=== PATIENT | female | born 1965 | race Caucasian/White ===

== ENCOUNTER 2021-02-20 13:32 | Observation (INO) | payer OTHER, SELFPAY ==
--- NOTE | ~2021-02-20 | US_ITS ---
EXAMINATION: US carotid duplex BI DATE: 02/21/2021 13:11 INDICATION: Left facial weakness. TECHNIQUE: Grayscale, color Doppler, and pulsed Doppler images of the cervical carotid arteries were obtained. The degree of vessel stenosis is placed in one of the following categories: normal, <50%, 5 0-69%, >=70% but less than near-occlusion, near-occlusion, or total occlusion. Note that percent sten osis relative to normal distal artery lumen diameter is indirectly measured from velocity measurement s as described by James, et al. Radiology 2003; 229:340-346. COMPARISON: None. FINDINGS: RIGHT: The right common carotid artery (CCA) peak systolic velocity (PSV) is 94 cm/s. The right internal car otid artery (ICA) PSV is 102 cm/s. The right ICA end-diastolic velocity (EDV) is 47 cm/s. The right I CA/CCA PSV ratio is 1.1. Grayscale and color Doppler images yield an estimate of <50% diameter reduct ion from plaque in the ICA. There is antegrade flow in the right vertebral artery. LEFT: The left CCA PSV is 94 cm/s. The left ICA PSV is 98 cm/s. The left ICA EDV is 37 cm/s. The left ICA/C CA PSV ratio is 1.1. Grayscale and color Doppler images yield an estimate of <50% diameter reduction from plaque in the ICA. There is antegrade flow in the left vertebral artery. IMPRESSION: 1. <50% stenosis in the right internal carotid artery. 2. <50% stenosis in the left internal carotid artery. Reviewed, dictated and finalized at location A. FIELD CASE MANAGER
--- NOTE | ~2021-02-20 | XR_ITS ---
EXAMINATION: XR chest 1V portable EXAM DATE: 02/20/2021 14:07 INDICATION: Memory loss. TECHNIQUE: Portable AP frontal chest x-ray was obtained. Comparison is made to prior examination from 03/25/2018. FINDINGS: The lungs are clear. There are no pleural effusions. Cardiac silhouette is prominent but magnified on this AP technique. There is no pneumothorax suspected. The bones and soft tissues are unremarkable. IMPRESSION: No acute cardiopulmonary findings. Reviewed, dictated and finalized at location B. ER ORIENTATION TEACHER
--- NOTE | ~2021-02-20 | CT_ITS ---
EXAMINATION: CT brain wo con DATE: 02/20/2021 13:45 INDICATION: Left facial weakness. Confusion. Memory loss. TECHNIQUE: Computed tomography (CT) of the head was performed without intravenous contrast. The mA wa s adjusted according to patient size. Iterative reconstruction technique was employed. The dose-lengt h product was 605.33 mGy-cm. COMPARISON: None FINDINGS: There is no intracranial hemorrhage, acute infarction, or abnormal intracranial mass lesion . The ventricles are normal in size. The mastoid air cells are normal. The paranasal sinuses are melchor r. The orbits are normal. IMPRESSION: 1. Normal brain. I called this result to Dr. Brunson. Reviewed, dictated and finalized at location A. NT SERVICE COORDINATOR
--- NOTE | ~2021-02-20 | MR_ITS ---
EXAMINATION: MR brain/brain stem wo/w con EXAM DATE: 02/21/2021 13:01 INDICATION: Global amnesia. TECHNIQUE: Magnetic resonance imaging (MRI) of the brain/brain stem obtained without contrast. Sagit oliva T1, axial diffusion, gradient echo (T2*), T1, T2, FLAIR sequences obtained. Patient was then inj ected with 19 cc intravenous Multihance contrast. Axial and coronal postcontrast T1 weighted sequence s obtained. There is no prior study for comparison. FINDINGS: Bilateral choroidal fissure cysts. There are no areas of restricted diffusion to suggest ac nooksack infarction. There is no acute hemorrhage seen on the T2*, a hemosiderin sensitive sequence. No intraparenchymal brain mass. The ventricles are normal in size. There are no extra-axial collections . Flow voids are seen in the cerebral arteries on the T2-weighted sequences consistent with their ex pected patency. The orbits are unremarkable. Soft tissue is unremarkable. There are no areas of a bnormal enhancement on the postcontrast images. IMPRESSION: 1. Unremarkable brain MRI examination. Reviewed, dictated and finalized at location B. CEMENTER
[2021-02-20 13:38] LABS: Glucose Point of Care 98 mg/dl (65-105)
--- NOTE | 2021-02-20 13:39 | ECG_ITS ---
Measurements Intervals [place] Rate: 91 P: 33 MA: 189 QRS: -20 QRSD: 98 T: 18 QT: 337 QTc: 416 Interpretive Statements SINUS RHYTHM LOW QRS VOLTAGE IN PRECORDIAL LEADS BORDERLINE R WAVE PROGRESSION, ANTERIOR LEADS CONSIDER INFERIOR INFARCT, AGE INDETERMINATE BASELINE ARTIFACT- I, II, III, AVR, AVL, AVF, V1, V3-V6 ABNORMAL ECG Electronically Signed On 02-20-2021 14:49:07 MECHANICAL PLANNER by Deshawn Timmons D.O.
[2021-02-20 13:46] VITALS: BP 129/76; PULSE 88; PULSE 96; RESP 24; RESP 25; O2SAT 100
--- NOTE | 2021-02-20 14:03 | PC.NURSE ---
Pts in room. Pt asked how long you been without a leg? Pts states 2 years ago. Pt also states she has no idea what her house looks like.
[2021-02-20 14:44] LABS: Basophils Absolute Auto 0.1 K/mm3 (0.0-0.1); Basophils Percent Auto 0.6 % (0.2-1.2); Eosinophils Absolute Auto 0.1 K/mm3 (0-0.3); Eosinophils Percent Auto 1.6 % (0-4.4); Hematocrit 42.8 % (37.0-47.0); Hemoglobin 14.3 g/dL (12.0-15.0); Immature Granulocyte Absolute 0.02 K/mm3 (0.00-0.031); Immature Granulocyte Percent A 0.2 % (0-0.5); Lymphocytes Absolute Auto 2.39 K/mm3 (0.9-3.2); Lymphocytes Percent Auto 27.1 % (18.3-44.2); Mean Corpuscular HGB Conc 33.4 g/dl (32-36); Mean Corpuscular Hemoglobin 28.7 pg (26-34); Mean Corpuscular Volume 85.9 fl (80-100); Mean Platelet Volume 9.5 fl (7.4-10.4); Monocytes Absolute Auto 0.4 K/mm3 (0.1-0.6); Monocytes Percent Auto 4.9 % (2.6-8.5); Neutrophils Absolute Auto 5.8 K/mm3 (1.3-6.7); Neutrophils Percent Auto 65.6 % (45.5-73.1); Platelet Count Result 249 k/mm3 (150-375); Red Blood Count 4.98 M/mm3 (4.2-5.4); Red Cell Distribution Width 12.6 % (11.5-14.5); White Blood Count 8.8 K/mm3 (4.5-10.0)
[2021-02-20 14:55] LABS: Anion Gap 8 mmol/L (8-16); Blood Urea Nitrogen 17 mg/dL (7-17); Calcium 9.9 mg/dL (8.4-10.2); Carbon Dioxide 28 mmol/L (22-30); Chloride 103 mmol/L (98-107); Estimated CRCL calculation 82 ml/min; Estimated Glomerular Filt Rate > 60; Glucose 99 mg/dL (65-110); Potassium 3.8 mmol/L (3.4-5.0); Sodium 139 mmol/L (137-145)
[2021-02-20 14:56] LABS: Partial Thromboplastin Time 25.2 SECONDS (22.3-36.8); Prothrombin Time 12.7 Seconds (11.1-14.7)
[2021-02-20 15:07] LABS: Troponin I < 0.012 ng/mL (0.000-0.034)
--- NOTE | 2021-02-20 15:20 | ED.NEUROSD ---
HPI - Neuro Symptoms/Deficit General Chief Complaint: Neuro Symptoms/Deficit Stated Complaint: AMS Time Seen by Provider: 02/20/21 14:29 Source: patient, family and RN notes reviewed Mode of arrival: ambulatory Limitations: altered mental status History of Present Illness HPI Narrative: Patient presents to the ED with confusion started at work. Patient does not remember where she was and how she can get back to go home and her birthday and other recent events. Started 3 to 5 hours prior to arrival to the emergency room. Patient denies any weakness, numbness or tingling or headache. Patient also denies any fever, chills, nausea, vomiting, chest pain or shortness of breath or having similar symptom. reported that patient have a lot of stress lately Related Data Allergies Allergy/AdvReac Type Severity Reaction Status Date / Time No Known Allergies Allergy Unknown Verified 07/29/20 13:03 Review of Systems Review of Systems: ROS unobtainable: Yes unobtainable due to medical condition PMFSH Past Medical History Medical History (Updated 02/20/21 @ 15:24 by Zuleyma Brunson MD) BMI 32.0-32.9,adult Ganglion, left wrist Melanoma in situ Surgical History Surgical History (Updated 02/20/21 @ 15:22 by Janet Kothari PA-C) History of melanoma excision Excision melanoma in situ of left leg Family History Family History Father Hypertension Family history of diabetes mellitus in first degree relative Sibling Hypertension Grandparent Family history of coronary artery disease Diabetes mellitus Social History Social History (Updated 02/20/21 @ 15:23 by Janet Kothari PA-C) Social History: Surrogate decision-maker: CODE STATUS: Full code. Smoking status: Never smoker Alcohol intake: never Substance use: never Substance use type: does not use Additional living arrangements comments: Patient lives in [place]. 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 Exam Narrative: General appearance: Well-developed, well-nourished Skin: Normal color Head: Normocephalic, nontraumatic Eyes: Clear conjunctiva ENT: Oropharynx normal, ears normal, nose normal Neck: Supple, nontender Chest and respiratory: Airway patent, no respiratory distress, no accessory muscle use Heart: Regular rate/rhythm Abdomen: Soft, nontender, no organomegaly, quiet bowel sounds Vascular: Normal peripheral pulses, normal capillary refill. Musculoskeletal: Normal range of motion, nontender back Neurologic: Alert and oriented to her name only Course Course Emergency Course: Stable Vital Signs Vital signs: Vital Signs Pulse Rate 88 02/20/21 13:46 Respiratory Rate 25 H 02/20/21 13:46 Blood Pressure 129/76 02/20/21 13:46 Pulse Oximetry 100 02/20/21 13:46 Pulse Rate 96 02/20/21 13:46 Respiratory Rate 24 H 02/20/21 13:46 Blood Pressure 129/76 02/20/21 13:46 Pulse Oximetry 100 02/20/21 13:46 MDM - Neuro Symptoms/Deficit MDM Narrative Medical decision making narrative: Patient presents with global amnesia. Unknown underlying cause. Labs, CT head ordered. Differential diagnosis as below. Differential Diagnosis Differential diagnosis: Likely cerebrovascular accident, transient cerebral ischemia and other (Transient global amnesia) Lab Data Result diagrams: 02/20/21 14:28 02/20/21 14:28 Labs: Lab Results 02/20/21 02/20/21 02/20/21 Range/Units 13:36 14:28 14:28 WBC 8.8 (4.5-10.0) K/mm3 RBC 4.98 (4.2-5.4) M/mm3 Hgb 14.3 (12.0-15.0) g/dL Hct 42.8 (37.0-47.0) %
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
[2021-02-20 17:36] VITALS: BMI 32.7
--- NOTE | 2021-02-20 18:08 | ADMGEN ---
This patient, Mercedes Watson, was admitted to [address] [facility] Surg Room 312-01. Patient/family oriented to hospital policies and general routines including ID bracelet, bed and alarms, visiting hours, pain management, procedures, bathroom and other care routines, personal items, smoking policy, room service/diet, and visiting hours. Information on how to activate the Rapid Response Team has been discussed. Patient/Family are encouraged to report perceived risks to care and to ask questions if they do not understand what they are told or what they should do.
[2021-02-20 18:25] VITALS: BP 143/74; PULSE 95; RESP 20; TEMP 36.3; O2SAT 100
[2021-02-20 20:00] VITALS: PULSE 97
[2021-02-20 22:00] VITALS: BP 121/71; PULSE 95; RESP 18; TEMP 36.6; O2SAT 96
[2021-02-20] MEDS: ACETAMINOPHEN 325 MG TABLET 650 MG PO (23:06)
[2021-02-20 23:45] VITALS: O2SAT 98
[2021-02-21] VITALS (8 sets, daily range): BP systolic 112–151; BP diastolic 63–93; PULSE 68–86; RESP 14–20; TEMP 36.1–36.4; O2SAT 95–100
[2021-02-21] MEDS: ACETAMINOPHEN 325 MG TABLET 650 MG PO ×2 (06:56→14:25)
--- NOTE | 2021-02-21 09:25 | WPDNEUROLOGY ---
Neurology EEG Report General Information Date of Study: 02/21/21 TEST eeg DIAGNOSIS Global amnesia CONDITION OF RECORDING drowsy and sleep EEG NUMBER [id number] CLINICAL HISTORY patient reported she does not remember anything at all from yesterday EEG DESCRIPTION basic resting occipital frequency consists of very minimal amount of poorly organized low voltage 8 to 10 hertz per 2nd alpha during brief periods of wakefulness admixed with low-voltage 15 to 18 hertz per 2nd beta. Low-voltage beta activity seen diffusely admixed waxing and waning posterior alpha rhythm. Bilateral symmetrical sleep activity seen during sleep. Excessive amount of low to medium voltage 3 to 4 hertz per 2nd delta activity seen during drowsiness awake. Non paroxysmal nonfocal nonlateralizing. IMPRESSION Abnormal record due to the presence of excessive amount of delta activity. Clinical correlation recommended these abnormalities could be suggestive of underlying organic or metabolic encephalopathy or neuro degenerative process.
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
--- NOTE | 2021-02-21 10:44 | PC.NURSE ---
On 02/21/21, the student, [Tiarra Luu ], provided care and completed [facility] documentation on this patient. I have reviewed the student's documentation and agree with the findings.
[2021-02-21 10:55] LABS: Add Urine Microscopic? NO; Appearance Urine Clear (Clear); Bilirubin Urine Negative (Negative); Blood Urine Negative (Negative); Color Urine Yellow (Yellow); Glucose Urine UA Negative (Negative); Ketones Urine Negative (Negative); Leukocyte Esterase Ur Negative LEU/UL (Negative); Nitrate Urine Negative (Negative); Protein Urine Negative (Negative); Specific Grav Ur 1.013 (1.001-1.035); Urobilinogen Urine Negative mg/dL (<2.0)
[2021-02-21 12:13] LABS: Potassium 3.8 mmol/L (3.4-5.0)
[2021-02-21 12:24] LABS: LDL Cholesterol Direct 95 mg/dL
[2021-02-21 12:25] LABS: Alanine Aminotransferase 23 U/L (4-35); Albumin Level 4.2 g/dL (3.5-5.1); Alkaline Phosphatase 84 U/L (38-126); Anion Gap 6 mmol/L (8-16); Aspartate Amino Transferase 28 U/L (14-36); Bilirubin,Total 0.5 mg/dL (0.2-1.3); Blood Urea Nitrogen 14 mg/dL (7-17); Calcium 9.4 mg/dL (8.4-10.2); Carbon Dioxide 26 mmol/L (22-30); Chloride 103 mmol/L (98-107); Cholesterol 190 mg/dL (0-200); Estimated CRCL calculation 93 ml/min; Estimated Glomerular Filt Rate > 60; Glucose 96 mg/dL (65-110); HDL Direct 61 mg/dL; Phosphorus 3.7 mg/dL (2.5-4.5); Sodium 135 mmol/L (137-145); Triglycerides 99 mg/dL (<150)
--- NOTE | 2021-02-21 13:04 | PC.NURSE ---
Pt transferred for MRI at 1200.
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
--- NOTE | 2021-02-21 22:12 | ECHO_ITS ---
Patient Info Name: Mercedes Watson Age: 55 years : 1965 Gender: Female Ht: 68 in Wt: 215 lbs BSA: 2.20 m2 HR: 85 bpm BP: 124 / 63 mmHg Exam Date: 02/21/2021 10:24 AM Exam Location: [facility] Patient Status: Outpatient Admit Date: 02/20/2021 Staff Ordering Physician: Janet Kothari PA-C [employer] Planner: Thom Alatorre RDCS, RT Attending Provider: Kong Cooper Referring Physician: Taye SORIANO; Exam Type: CA echo doppler color flow Study Info Indications R94.31 - Abnormal electrocardiogram ECG EKG Complete two-dimensional, color flow and Doppler transthoracic echocardiogram is performed. Strain analysis performed. Summary 1. Complete two-dimensional, color flow and Doppler transthoracic echocardiogram is performed. 2. Left ventricular chamber dimension is normal. 3. Left ventricular systolic function is normal, estimated at 60-65%. 4. The left ventricular diastolic function is grade I diastolic dysfunction. 5. E/e' 5 is not elevated. 6. Global longitudinal strain is slightly abnormal at -16.9%. 7. There is trace pulmonic regurgitation. Left Ventricle E/e' 5 is not elevated. Global longitudinal strain is slightly abnormal at -16.9%. Left ventricular chamber dimension is normal. Left ventricular systolic function is normal, estimated at 60-65%. The left ventricular diastolic function is grade I diastolic dysfunction. Right Ventricle Right ventricular systolic function is normal and with normal TAPSE 3.0 cm. Right ventricular chamber dimension is normal. Left Atria Left atrial chamber dimension is normal. Right Atria Right atrial chamber dimension is normal. Aortic Valve The aortic valve is trileaflet. There is no aortic valve stenosis. There is no aortic valve regurgitation. Pulmonic Valve There is trace pulmonic regurgitation. Mitral Valve There is no mitral valve stenosis. There is no mitral valve regurgitation. Tricuspid Valve There is no tricuspid valve regurgitation. Pericardium/Pleural There is no pericardial effusion. Inferior Vena Cava Normal inferior vena cava with >50% collapse upon inspiration consistent with normal right atrial pressure, 5 mmHg. Aorta The aortic root size at the sinus of Valsalva is normal. Left Ventricular Outflow Tract Name Value Normal LVOT 2D LVOT Diameter 2.0 cm LVOT Doppler LVOT Peak Gradient 4 mmHg LVOT Mean Gradient 2 mmHg LVOT VTI 16 cm LVOT VTI/AV VTI Ratio 0.7 LVOT Stroke Volume 50 ml LVOT CO 4.5 l/min LVOT CI 2.1 l/min/m2 Mitral Valve Name Value Normal MV Doppler MV Decel [place] 240 cm/s2 MV PHT
[2021-02-22] VITALS: PULSE 66
[2021-02-22 04:00] VITALS: PULSE 70
[2021-02-22 06:15] VITALS: BP 131/74; PULSE 71; RESP 16; TEMP 36.1; O2SAT 100
[2021-02-22 06:30] LABS: Basophils Percent Auto 0.6 % (0.2-1.2); Eosinophils Absolute Auto 0.2 K/mm3 (0-0.3); Eosinophils Percent Auto 3.5 % (0-4.4); Hematocrit 39.6 % (37.0-47.0); Hemoglobin 12.9 g/dL (12.0-15.0); Immature Granulocyte Absolute 0.02 K/mm3 (0.00-0.031); Immature Granulocyte Percent A 0.3 % (0-0.5); Lymphocytes Absolute Auto 1.75 K/mm3 (0.9-3.2); Lymphocytes Percent Auto 25.8 % (18.3-44.2); Mean Corpuscular HGB Conc 32.6 g/dl (32-36); Mean Corpuscular Hemoglobin 28.7 pg (26-34); Mean Corpuscular Volume 88.2 fl (80-100); Mean Platelet Volume 9.7 fl (7.4-10.4); Monocytes Absolute Auto 0.5 K/mm3 (0.1-0.6); Monocytes Percent Auto 6.9 % (2.6-8.5); Neutrophils Absolute Auto 4.3 K/mm3 (1.3-6.7); Neutrophils Percent Auto 62.9 % (45.5-73.1); Platelet Count Result 216 k/mm3 (150-375); Red Blood Count 4.49 M/mm3 (4.2-5.4); Red Cell Distribution Width 12.7 % (11.5-14.5); White Blood Count 6.8 K/mm3 (4.5-10.0)
[2021-02-22] MEDS: ACETAMINOPHEN 325 MG TABLET 650 MG PO (06:32)
[2021-02-22 06:46] LABS: Alanine Aminotransferase 20 U/L (4-35); Albumin Level 3.8 g/dL (3.5-5.1); Alkaline Phosphatase 83 U/L (38-126); Anion Gap 6 mmol/L (8-16); Aspartate Amino Transferase 24 U/L (14-36); Bilirubin,Total 0.5 mg/dL (0.2-1.3); Blood Urea Nitrogen 19 mg/dL (7-17); Calcium 9.3 mg/dL (8.4-10.2); Carbon Dioxide 29 mmol/L (22-30); Chloride 105 mmol/L (98-107); Estimated CRCL calculation 83 ml/min; Estimated Glomerular Filt Rate > 60; Glucose 92 mg/dL (65-110); Magnesium 2.1 mg/dL (1.6-2.3); Potassium 4.2 mmol/L (3.4-5.0); Sodium 140 mmol/L (137-145)
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
[2021-02-22 10:10] VITALS: PULSE 79
--- NOTE | 2021-02-22 12:12 | WPDNEUROPN ---
Progress Note: A&P Additional Plan 1. Transient global amnesia will continue aspirin 81 mg daily 2. Follow up in the office in 3 months or if any problem give us a call Subjective Date/time seen: 02/22/21 12:12 55 years old admitted to the hospital with the possibility of TIA GA versus partial complex seizure, evaluation documented normal routine blood studies including coagulation st chemistry and UA, carotid Doppler studies normal, brain MRI normal, chest x-ray negative, eeg abnormal due to the presence of excessive amount of delta activity. Review of Systems Review of Systems: All systems reviewed & are unremarkable except as noted in HPI and below Exam Narrative: Examination revealed her to be awake alert cooperative in no obvious acute distress, head normocephalic with no cranial bruit, ear nose throat examination normal, neck is supple with no cervical bruit no thyromegaly no lymphadenopathy, heart regular with no murmur, lungs clear with no rhonchi or crepitations, abdomen is soft neurological examination revealed her to have normal mental status normal speech cranial examination normal motor and sensory exam normal reflexes symmetrical plantars were downgoing there was no evidence of sensory or cerebellar deficit. Objective Data Vital Signs Vital Signs: Vital Signs - 24 hr 02/21/21 14:00 02/21/21 20:00 02/21/21 22:13 Temperature 36.4 C L Pulse Rate 85 68 Respiratory Rate 20 14 Blood Pressure 151/93 H 112/66 Pulse Oximetry 96 96 95 02/22/21 00:00 02/22/21 04:00 02/22/21 06:15 Temperature 36.1 C L Pulse Rate 66 70 71 Respiratory Rate 16 Blood Pressure 131/74 Pulse Oximetry 100 02/22/21 10:10 Temperature Pulse Rate 79 Respiratory Rate Blood Pressure Pulse Oximetry Intake/Output Intake/Output: Intake & Output 02/19/21 02/20/21 02/21/21 02/22/21 23:59 23:59 23:59 23:59 Intake Total 240 1754 120 Balance 240 1754 120 Meds/Results Medications: Active Medications Generic Name Dose Route Start Last Admin Trade Name Freq PRN Reason Stop Dose Admin Acetaminophen 650 mg 02/20/21 22:50 02/22/21 06:32 Acetaminophen 325 Mg Tablet PO 650 mg Q6H PRN Administration Mild Pain (1-3) or Fever Levetiracetam 500 mg 02/22/21 11:35 Levetiracetam 500 Mg Tablet PO Q12HR AIRAM Radiology Results: ITS Impressions Head CT 02/20/21 13:45 IMPRESSION: 1. Normal brain. I called this result to Dr. Brunson. Chest X-Ray 02/20/21 14:15 IMPRESSION: No acute cardiopulmonary findings. Brain MRI 02/21/21 13:03 IMPRESSION: 1. Unremarkable brain MRI examination. Carotid Doppler Study 02/21/21 13:11 IMPRESSION: 1. <50% stenosis in the right internal carotid artery. 2. <50% stenosis in the left internal carotid artery. Labs Labs: Laboratory Results - last 24 hr 02/21/21 02/21/21 02/22/21 11:46 11:46 06:00 WBC 6.8 RBC 4.49 Hgb 12.9 Hct 39.6 MCV 88.2 MCH 28.7 MCHC 32.6 RDW 12.7 Plt Count 216 MPV 9.7 Immature Gran % (Auto) 0.3 Neut % (Auto) 62.9 Lymph % (Auto) 25.8 [place] % (Auto) 6.9 Eos % (Auto) 3.5 Baso % (Auto) 0.6 Lymph # (Auto) 1.75 [place] # (Auto) 0.5 Eos # (Auto) 0.2 Baso # (Auto) 0.0 Abs Immat Gran (auto) 0.02 Absolute Neuts (auto) 4.3 Absolute Nucleated RBC 0.0 Nucleated RBC % 0.0 Sodium 135 L Potassium 3.8 Chloride 103 Carbon Dioxide 26 Anion Gap 6 L BUN 14 Creatinine 0.70 Estim Creat Clear Calc 93 Estimated GFR > 60 Glucose 96 Calcium 9.4 Phosphorus 3.7 Magnesium 2.0 Total Bilirubin 0.5 AST 28 ALT 23 Alkaline Phosphatase 84 Total Protein 7.0 Albumin 4.2 Triglycerides 99 Cholesterol 190 LDL Cholesterol Direct 95 HDL Direct 61 TSH (Reflex) 1.240 02/22/21 06:00 WBC RBC Hgb Hct MCV MCH MCHC RDW Plt Count MPV Immature Gran %
[2021-02-22] MEDS: levETIRAcetam 500 MG TABLET PO (13:10)
== END 2021-02-22 13:10 | disposition home or self-care (01) ==
LOC: ANHED 15:24 → ANH3MEDSUR 16:44
PROVIDERS: Nurse Practitioner; Physician Assistant; Admitting Provider Family Medicine; Emergency Provider Emergency Medicine; PCP Family Medicine; Visit Provider Internal Medicine
DX: R41.0 Disorientation, unspecified (principal); G45.4 Transient global amnesia; R94.01 Abnormal electroencephalogram [EEG]; E66.9 Obesity, unspecified; Z68.33 Body mass index [BMI] 33.0-33.9, adult; I51.9 Heart disease, unspecified
CPT/HCPCS: 36415; 70450; 70553; 71045; 80048; 80053; 80061; 81003; 81025; 82948; 83735; 84100; 84443; 84484; 85025; 85610; 85730; 93005; 93306; 93880; 95816; 99285; A9270; A9577; G0378; G0379

== ENCOUNTER 2021-04-22 07:16 | Emergency (ER) | payer OTHER, SELFPAY ==
--- NOTE | ~2021-04-22 | XR_ITS ---
XR shoulder RT min 2V 04/22/2021 07:49 INDICATION: Right shoulder pain after fall PROCEDURE: 4 views right shoulder COMPARISON: No prior studies for comparison. FINDINGS: Fracture, dislocation or subluxation is not identified. There is mild osteoarthritis of the acromioclavicular joint. The soft tissues appear within normal limits. No foreign bodies are identi fied. IMPRESSION: 1: NO ACUTE BONE OR JOINT ABNORMALITY IDENTIFIED. Reviewed, dictated and finalized at location A. [employer]
[2021-04-22 07:19] VITALS: BP 141/68; PULSE 76; RESP 16; TEMP 36.9; O2SAT 100
--- NOTE | 2021-04-22 07:48 | ED.UPPEXIN ---
HPI - Extremity Injury (Upper) General Chief Complaint: Extremity Injury, Upper Stated Complaint: fall, right shoulder inj Time Seen by Provider: 04/22/21 07:26 Source: patient Mode of arrival: ambulatory Limitations: no limitations History of Present Illness HPI narrative: Patient is a 56-year-old female complaining of right shoulder pain after she slipped and fell while shoveling snow of her driveway. Patient states her pain is a 9 out of 10, aching, nonradiating, worse with palpation and movement. Patient denies any head, neck, chest, back, abdomen, pelvis or any other extremity pain/injury. Related Data Home Medications Medication Instructions Recorded Confirmed ascorbate calcium (vitamin C) 500 500 mg PO DAILY 04/10/21 04/20/21 mg tablet vitamin B complex 1 tablet PO DAILY 04/10/21 04/20/21 Allergies Allergy/AdvReac Type Severity Reaction Status Date / Time No Known Allergies Allergy Unknown Verified 04/22/21 07:38 Review of Systems Review of Systems: All systems reviewed & are unremarkable except as noted in HPI and below Constitutional: Constitutional: Denies body ache(s), Denies chills, Denies excessive sweating, Denies fatigue, Denies fever(s), Denies headache(s), Denies lethargy, Denies malaise, Denies weakness and Denies weight loss Eyes: Eyes: Denies blurry vision, Denies change in vision and Denies loss of vision ENT: Denies dizziness, Denies ear discharge, Denies headache(s), Denies lip swelling, Denies epistaxis, Denies nasal congestion, Denies neck pain, Denies throat swelling and Denies tongue swelling Cardiovascular: Cardiovascular: Denies chest pain, Denies chest pain at rest, Denies chest pain with activity, Denies diaphoresis, Denies rapid heart rate, Denies edema, Denies irregular heart rhythm, Denies lightheadedness, Denies palpitations, Denies dyspnea and Denies dyspnea on exertion Respiratory: Respiratory: Denies chest congestion, Denies cough, Denies hemoptysis, Denies dyspnea and Denies dyspnea on exertion Gastrointestinal: Gastrointestinal: Denies abdominal pain, Denies melena, Denies hematochezia, Denies diarrhea, Denies nausea, Denies vomiting and Denies hematemesis Musculoskeletal: Musculoskeletal: Denies abnormal gait, Denies deformity, Denies joint swelling, Denies limited range of motion, Denies neck pain and Denies numbness Neurologic: Denies Abnormal speech present, Denies abnormal gait, Denies confusion, Denies dizziness, Denies headache(s), Denies focal weakness, Denies loss of vision, Denies numbness, Denies Other visual disturbances, Denies Sensory deficit (Neuro) and Denies weakness Psychiatric: Psychiatric: Denies confusion, Denies depression, Denies auditory hallucinations, Denies homicidal ideation and Denies suicidal ideation Endocrine: Endocrine: Denies cold intolerance, Denies excessive sweating, Denies fatigue, Denies heat intolerance and Denies palpitations Hematologic/Lymphatic: Hematologic/Lymphatic: Denies easy bleeding and Denies easy bruising Allergic/Immunologic: Allergic/Immunologic: Denies lip swelling, Denies throat swelling and Denies tongue swelling PMFSH Past Medical History Medical History BMI 32.0-32.9,adult Ganglion, left wrist Melanoma in situ Surgical History Surgical History History of melanoma excision Excision melanoma in situ of left leg. Family History Family History Father Hypertension Family history of diabetes mellitus in first degree relative Sibling Hypertension Grandparent Family history of coronary artery disease Diabetes mellitus Social History Social History Social History: Surrogate decision-maker: CODE STATUS: Full code. Alcohol intake: never Substance use: never Substance use type: does no
[2021-04-22] MEDS: KETOROLAC 30 MG/ML VIAL (*BKC) IM (07:56)
[2021-04-22] MEDS: TETANUS,DIPHTHERIA,AC PERTUSSIS ADULT (0.5 ML) BOOSTRIX IM (08:01)
== END 2021-04-22 08:25 | disposition home or self-care (01) ==
PROVIDERS: Emergency Provider Emergency Medicine; PCP Family Medicine
DX: S46.911A Strain of unspecified muscle, fascia and tendon at shoulder and upper arm level, right arm, initial encounter (principal); Z23 Encounter for immunization; Z85.820 Personal history of malignant melanoma of skin; W00.0XXA Fall on same level due to ice and snow, initial encounter
CPT/HCPCS: 73030; 90471; 90715; 96372; 99284; J1885

== ENCOUNTER 2021-06-05 01:07 | Day surgery (SDC) | payer OTHER, SELFPAY ==
[2021-04-20 14:32] VITALS: BMI 31.4
[2021-05-19 15:22] VITALS: BMI 31.4
[2021-06-05 08:55] VITALS: BP 119/71; PULSE 79; RESP 16; TEMP 36.2; O2SAT 98; BMI 32.7
--- NOTE | 2021-06-05 08:57 | SUR.PREOP ---
Blood refusal consent signed.
[2021-06-05] MEDS: LACTATED RINGERS 1,000 ML 150 ML IV CONT (09:09)
--- NOTE | 2021-06-05 09:21 | WPDANESEPPF ---
Anes - Initial Pre Proc Eval Procedure: Operation Date: 06/05/21 10:15 Proposed Procedures p Screening Colonoscopy - Christopher Magaña MD Date/Time: 06/05/21 09:21 Surgeon: Christopher Magaña MD Pre Op Diagnosis: neoplasm screening Patient Data Age: 56 Gender: F Height: 1.7 m Weight: 94.7 kg Last Vital Signs Temp 97.1 F L 06/05/21 08:55 Pulse 79 06/05/21 08:55 Resp 16 06/05/21 08:55 BP 119/71 06/05/21 08:55 Pulse Ox 98 06/05/21 08:55 Allergies Allergy/AdvReac Type Severity Reaction Status Date / Time No Known Allergies Allergy Unknown Verified 06/05/21 08:54 Home Medications Medication Instructions Recorded Confirmed Type aspirin [Aspirin Low Dose] 81 mg PO DAILY #30 tablet 02/22/21 06/05/21 Rx sertraline 25 mg tablet 25 mg PO DAILY #30 tablet 03/08/21 06/05/21 Rx ascorbate calcium (vitamin C) 500 500 mg PO DAILY 04/10/21 06/05/21 History mg tablet vitamin B complex 1 tablet PO DAILY 04/10/21 06/05/21 History diclofenac sodium 50 mg 50 mg PO BID #60 tablet 05/19/21 06/05/21 Rx tablet,delayed release levetiracetam 500 mg PO BID 05/19/21 06/05/21 History Patient hx anesthesia problems: none Family hx anesthesia problems: none Results Review: All pre-operative results and documents have been reviewed as part of the pre-operative evaluation. [facility] Past Medical History Medical History (Updated 06/05/21 @ 09:21 by Roberth Hewitt MD) BMI 32.0-32.9,adult BMI 33.0-33.9,adult Ganglion, left wrist Melanoma in situ Transient global amnesia Surgical History Surgical History History of melanoma excision Excision melanoma in situ of left leg. Family History Family History Father Hypertension Family history of diabetes mellitus in first degree relative Heart disease Sibling Hypertension Grandparent Family history of coronary artery disease Diabetes mellitus Mother No problems noted. Social History Social History Social History: Surrogate decision-maker: CODE STATUS: Full code. Second hand tobacco smoke exposure: No Alcohol intake: never Substance use: never Substance use type: does not use Living arrangements: with family Additional living arrangements comments: Patient lives in [place] with her . 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 Gender identity (if verbalized by the patient): Female Spiritual care concerns: Yes (Jahovah's witness no blood products) Anes - Eval Final PreProcedure Day of Procedure 06/05/21 09:21 Patient weight: obese Heart: regular rate and rhythm Lungs: clear to auscultation Airway: Mallampati scale class II Neurological: alert and oriented Last oral intake: >/= 8 hours ASA classification: III Emergent: no Anesthetic plan: proceed Anesthesia type and monitoring: general GIVS and standard monitoring Results Review: All pre-operative results and documents have been reviewed as part of the pre-operative evaluation. Informed Consent: The patient's anesthetic plan and its attendant risks and benefits were discussed with the patient/family/POA. Questions were solicited and answers provided to the satisfaction of the patient/family/POA.
--- NOTE | 2021-06-05 09:25 | WPDGICN ---
Assessment and Plan Assessment and plan (1) Screen for colon cancer: Code(s): Z12.11 - Encounter for screening for malignant neoplasm of colon Status: Acute Assessment and Plan: Patient presents for neoplasia screening colonoscopy. Appears to be at average risk for colon polyps. GI Consult Note Consult date/time: 06/05/21 09:25 HPI: Mercedes Watson is a 56 year old female Presents for screening colonoscopy. Patient's current weight appetite and bowel movements are normal. She denies abdominal pain. She has had no bleeding. Family history is noncontributory. She presents today for screening colonoscopy. Review of Systems Review of Systems: All systems reviewed & are unremarkable except as noted in HPI and below PMFSH Past Medical History Medical History (Updated 06/05/21 @ 09:21 by Roberth Hewitt MD) BMI 32.0-32.9,adult BMI 33.0-33.9,adult Ganglion, left wrist Melanoma in situ Transient global amnesia Surgical History Surgical History History of melanoma excision Excision melanoma in situ of left leg. Family History Family History Father Hypertension Family history of diabetes mellitus in first degree relative Heart disease Sibling Hypertension Grandparent Family history of coronary artery disease Diabetes mellitus Mother No problems noted. Social History Social History Social History: Surrogate decision-maker: CODE STATUS: Full code. Second hand tobacco smoke exposure: No Alcohol intake: never Substance use: never Substance use type: does not use Living arrangements: with family Additional living arrangements comments: Patient lives in [place] with her . 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 Gender identity (if verbalized by the patient): Female Spiritual care concerns: Yes (Jahovah's witness no blood products) Meds Home Medications and Allergies Home Medications Medication Instructions Recorded Confirmed Type aspirin [Aspirin Low Dose] 81 mg PO DAILY #30 tablet 02/22/21 06/05/21 Rx sertraline 25 mg tablet 25 mg PO DAILY #30 tablet 03/08/21 06/05/21 Rx ascorbate calcium (vitamin C) 500 500 mg PO DAILY 04/10/21 06/05/21 History mg tablet vitamin B complex 1 tablet PO DAILY 04/10/21 06/05/21 History diclofenac sodium 50 mg 50 mg PO BID #60 tablet 05/19/21 06/05/21 Rx tablet,delayed release levetiracetam 500 mg PO BID 05/19/21 06/05/21 History Allergies Allergy/AdvReac Type Severity Reaction Status Date / Time No Known Allergies Allergy Unknown Verified 06/05/21 08:54 Vital Signs Vital Signs - 24 hr 06/05/21 08:55 Temperature 97.1 F L Pulse Rate 79 Respiratory Rate 16 Blood Pressure 119/71 Pulse Oximetry 98 Exam Narrative: Physical exam reveals patient to be alert. Vital signs stable. HEENT exam is unremarkable. Patient is anicteric. Lungs are clear to auscultation and percussion. Heart is without murmur or extra sounds. Abdomen bowel sounds present soft nontender with no organomegaly. Digital external rectal exam is normal.
[2021-06-05 10:25] VITALS: BP 94/56; PULSE 67; RESP 14; O2SAT 99
[2021-06-05 10:35] VITALS: BP 110/84; PULSE 68; RESP 21; O2SAT 99
[2021-06-05 10:45] VITALS: BP 100/82; PULSE 65; RESP 18; O2SAT 100
== END 2021-06-05 10:52 | disposition home or self-care (01) ==
PROVIDERS: PCP Family Medicine; Visit Provider Internal Medicine Gastroenterology
PROC: 0DJD8ZZ Inspection of Lower Intestinal Tract, Via Natural or Artificial Opening Endoscopic (ICD-10-PCS; CPT 45378; principal; 2021-06-05 10:15)
DX: Z12.11 Encounter for screening for malignant neoplasm of colon (principal); Z86.006 Personal history of melanoma in-situ; G45.4 Transient global amnesia; Z79.82 Long term (current) use of aspirin; E66.9 Obesity, unspecified; Z68.32 Body mass index [BMI] 32.0-32.9, adult
CPT/HCPCS: 45378; J2704; J7120

== ENCOUNTER 2021-06-11 08:34 | Outpatient (CLI) | payer OTHER, SELFPAY ==
--- NOTE | ~2021-06-11 | MR_ITS ---
EXAMINATION: MR shoulder RT wo con DATE: 06/11/2021 09:38 INDICATION: Right shoulder pain. TECHNIQUE: Magnetic resonance imaging (MRI) of the right shoulder was performed without intravenous c ontrast. Sequences included axial PD-weighted FS FSE, coronal oblique PD-weighted FS FSE and T2-weigh carmenza FS FSE, and sagittal oblique T2-weighted FS FSE and T1-weighted FSE. COMPARISON: Right shoulder radiographs 04/22/2021 FINDINGS: Coracoacromial arch: The acromion undersurface is curved in morphology (type II). There is remodeling of the undersurface of the acromion, consistent with cuff arthropathy. There is moderate acromioclavicular joint osteoart hritis. There is moderate subacromial/subdeltoid bursitis. Rotator cuff: There is a full-thickness tear of supraspinatus and infraspinatus tendons measuring 4.0 cm anterior t o posterior by 4.0 cm proximal to distal. There is mild teres minor tendinopathy. There is moderate s ubscapularis tendinopathy. There is volume loss and mild fatty atrophy of supraspinatus and infraspin atus muscle bellies. Biceps tendon and glenoid labrum: Biceps tendon is in bicipital groove. There is mild intra-articular biceps tendinopathy. The glenoid labrum is normal. Fluid: There is a large glenohumeral joint effusion. Bones/cartilage: There is partial-thickness cartilage loss of superior glenoid. There is partial-thickness cartilage l oss of medial humeral head. IMPRESSION: 1. Massive full-thickness rotator cuff tear with cuff arthropathy. 2. Mild glenohumeral joint chondrosis. 3. Mild intra-articular biceps tendinopathy. 4. Large glenohumeral joint effusion and moderate subacromial/subdeltoid bursitis. 5. Moderate acromioclavicular joint osteoarthritis. Reviewed, dictated and finalized at location A. [employer] IMPRESSION: 1. Massive full-thickness rotator cuff tear with cuff arthropathy. 2. Mild glenohumeral joint chondrosis. 3. Mild intra-articular biceps tendinopathy. 4. Large glenohumeral joint effusion and moderate subacromial/subdeltoid bursit is. 5. Moderate acromioclavicular joint osteoarthritis.
== END 2021-06-11 08:35 | disposition home or self-care (01) ==
LOC: ANHIMG 08:36
PROVIDERS: PCP Family Medicine; Visit Provider Nurse Practitioner Family
DX: M25.411 Effusion, right shoulder (principal); M19.011 Primary osteoarthritis, right shoulder
CPT/HCPCS: 73221

== ENCOUNTER 2021-12-29 14:12 | Emergency (ER) | payer OTHER, SELFPAY ==
--- NOTE | ~2021-12-29 | CT_ITS ---
EXAMINATION: CT brain wo con INDICATION: Head injury COMPARISON: 02/20/2021 TECHNIQUE: Standard unenhanced head CT. The dose-length product (DLP) was 605.33 mGy-cm. The mA was a djusted according to patient size. Iterative reconstruction technique was employed. FINDINGS: There is no intracranial hemorrhage, acute infarction, or abnormal mass lesion. The ventric les are normal. There is no abnormal mass effect or midline shift. The lambert-white matter differentiat ion is normal. The basal cisterns are patent. The orbits are normal. The paranasal sinuses, mastoids and calvarium are normal. IMPRESSION: 1. No acute intracranial abnormality. Reviewed, dictated and finalized at location A.
[2021-12-29 15:14] VITALS: BP 137/83; PULSE 72; RESP 16; TEMP 36.6; O2SAT 99
--- NOTE | 2021-12-29 16:45 | ED.HEATRA ---
HPI - Head Injury General Chief complaint: Head Injury Stated complaint: head injury Time Seen by Provider: 12/29/21 16:22 History of Present Illness HPI Narrative: 56-year-old female here for evaluation of fall with head injury earlier today patient states that she was stepping down a step in the bathroom, when she missed a step, falling backwards and striking the back of her head against a shelf on the wall. She denies loss of consciousness. States that she was in her usual state of health this morning, denies chest pain, dizziness, any symptoms prior to the fall. She is unsure of her last tetanus shot. Currently only complaining of a headache. Related Data Home Medications Medication Instructions Recorded Confirmed ascorbate calcium (vitamin C) 500 500 mg PO DAILY 04/10/21 10/30/21 mg tablet vitamin B complex (B 1 tablet PO DAILY 04/10/21 10/30/21 Complex-Vitamin B12 tablet) Allergies Allergy/AdvReac Type Severity Reaction Status Date / Time No Known Allergies Allergy Unknown Verified 11/29/21 09:57 Review of Systems Review of Systems: Gen: Denies fevers or chills Eyes: Denies eye pain or visual change ENT: Denies congestion Respiratory: Denies shortness of breath or cough CV: Denies chest pain or palpitations GI: Denies abdominal pain nausea, emesis or diarrhea : denies burning, urgency, frequency or hematuria Musculoskeletal: Denies back pain or muscle pain Neuro: Reports headache. denies numbness, tingling, weakness or focal weakness Skin: Denies rash Except as documented, all other systems reviewed and negative PMFSH Past Medical History Medical History Amnesia memory loss BMI 32.0-32.9,adult BMI 32.0-32.9,adult BMI 33.0-33.9,adult Confusion Ganglion, left wrist Lumbar radiculopathy, acute Melanoma in situ Right shoulder pain Right shoulder pain Rotator cuff tear Rotator cuff tear arthropathy of right shoulder Screen for colon cancer Screening for colon cancer Screening mammogram, encounter for Stress and adjustment reaction Transient global amnesia Surgical History Surgical History History of melanoma excision Excision melanoma in situ of left leg. Family History Family History Father Hypertension Family history of diabetes mellitus in first degree relative Heart disease Sibling Hypertension Grandparent Family history of coronary artery disease Diabetes mellitus Mother Hypertension Social History Social History Social History: Surrogate decision-maker: CODE STATUS: Full code. Smoking status: Never smoker Second hand tobacco smoke exposure: No Alcohol intake: never Substance use: never Substance use type: does not use Additional living arrangements comments: Patient lives in [place] with her . 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 Gender identity (if verbalized by the patient): Female Sexual Orientation (if Verbalized by the Patient): Straight or Heterosexual Spiritual care concerns: Yes (Jahovah's witness no blood products) Exam Narrative: APPEARANCE: Well appearing, no pain in distress, well-nourished. Head: Normocephalic and atraumatic. EYES: PERRLA/EOMI, conjunctivae clear NOSE: No nasal drainage EARS: External ear normal in appearance THROAT: Oropharynx is clear. Mucous membranes are moist. NECK: no tenderness to C spine. FROM in neck. Supple. No adenopathy, no masses. RESPIRATORY: Airway patent, respirations nonlabored. Clear to auscultation bilaterally, no rales, rhonchi, wheezing. CARDIOVASCULAR: Regular rate and rhythm without murmurs, rubs, or gallops. ABDOMINAL: Normoactive bowel sounds. Soft, nontender, nondistended. No rebound tenderness or guarding.
[2021-12-29] MEDS: TETANUS,DIPHTHERIA,AC PERTUSSIS ADULT (0.5 ML) BOOSTRIX IM (16:55)
[2021-12-29] MEDS: ACETAMINOPHEN 325 MG TABLET 650 MG PO (17:15)
== END 2021-12-29 17:34 | disposition home or self-care (01) ==
LOC: ANHED 17:26
PROVIDERS: Emergency Provider Emergency Medicine; PCP Family Medicine
DX: S01.01XA Laceration without foreign body of scalp, initial encounter (principal); Z23 Encounter for immunization; Z85.820 Personal history of malignant melanoma of skin; W10.9XXA Fall (on) (from) unspecified stairs and steps, initial encounter
CPT/HCPCS: 12001; 70450; 90471; 90715; 99284; A9270

== ENCOUNTER 2022-02-07 21:18 | Emergency (ER) | payer OTHER, SELFPAY ==
--- NOTE | ~2022-02-07 | XR_ITS ---
EXAMINATION: XR chest 2V Exam Date/Time: 02/07/2022 22:00 CDT HISTORY: Possible aspiration, cough, congestion, sob. no cardiac hx Comparison: None available. RESULT: Lines, tubes, and devices: None. Lungs and pleura: Scattered reticulonodular opacities and cuffing. Cardiomediastinal silhouette: Stable. Other: No acute osseous or upper abdominal finding. IMPRESSION: Pulmonary opacities may represent bronchiolitis, as can be seen with atypical infection, asthma, aspi ration, and small airways disease. Reviewed, dictated and finalized at location K. IMPRESSION: Pulmonary opacities may represent bronchiolitis, as can be seen with atypical i nfection, asthma, aspiration, and small airways disease.
[2022-02-07 21:19] VITALS: PULSE 88; RESP 18; TEMP 36.4; O2SAT 99
[2022-02-07] MEDS: LIDOCAINE HCL 2% VISC SOLN 15 ML UDC PO (22:21)
--- NOTE | 2022-02-07 22:45 | ED.GENADULT ---
HPI - General Adult General Chief complaint: Unspecified Stated complaint: something stuck in my throat Time Seen by Provider: 02/07/22 21:39 History of Present Illness HPI narrative: Patient states 56-year-old female who presents with discomfort in the foot. She reports she took her azithromycin this afternoon and began having discomfort in her throat. She has been able to drink and eat since then. She is not vomiting. Her recently had pneumonia and she started having cough for the last couple days but her doctor started her on azithromycin. She did a home COVID test that was negative. No fevers or chills. She does have congestion and sore throat and postnasal drip. Related Data Home Medications Medication Instructions Recorded Confirmed ascorbate calcium (vitamin C) 500 500 mg PO DAILY 04/10/21 01/08/22 mg tablet vitamin B complex (B 1 tablet PO DAILY 04/10/21 01/08/22 Complex-Vitamin B12 tablet) Allergies Allergy/AdvReac Type Severity Reaction Status Date / Time No Known Allergies Allergy Unknown Verified 01/08/22 09:47 Review of Systems Review of Systems: All systems reviewed & are unremarkable except as noted in HPI and below Constitutional: Constitutional: Denies chills and Denies fever(s) ENT: Denies dysphagia, Reports nasal congestion, Reports post nasal drip, Reports sore throat, Denies throat swelling and Denies tongue swelling Cardiovascular: Cardiovascular: Denies chest pain and Denies palpitations Respiratory: Respiratory: Reports cough, Denies hemoptysis, Denies dyspnea and Denies wheezing PMFSH Past Medical History Medical History Amnesia memory loss BMI 32.0-32.9,adult BMI 32.0-32.9,adult BMI 33.0-33.9,adult Confusion Ganglion, left wrist Lumbar radiculopathy, acute Melanoma in situ Right shoulder pain Right shoulder pain Rotator cuff tear Rotator cuff tear arthropathy of right shoulder Screen for colon cancer Screening for colon cancer Screening mammogram, encounter for Stress and adjustment reaction Transient global amnesia Surgical History Surgical History History of melanoma excision Excision melanoma in situ of left leg. Family History Family History Father Hypertension Family history of diabetes mellitus in first degree relative Heart disease Sibling Hypertension Grandparent Family history of coronary artery disease Diabetes mellitus Mother Hypertension Social History Social History Social History: Surrogate decision-maker: CODE STATUS: Full code. Smoking status: Never smoker Second hand tobacco smoke exposure: No Alcohol intake: never Substance use: never Substance use type: does not use Additional living arrangements comments: Patient lives in [place] with her . 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 Gender identity (if verbalized by the patient): Female Sexual Orientation (if Verbalized by the Patient): Straight or Heterosexual Spiritual care concerns: Yes (Jahovah's witness no blood products) Exam Narrative: GENERAL: Well-appearing, well-nourished, and in no acute distress. HEAD: Normocephalic, atraumatic. ENT: Mucous membranes moist. NECK: Supple. CHEST: Clear to auscultation. No respiratory distress. HEART: Regular rate and rhythm. Normal peripheral pulses. EXTREMITIES: Normal range of motion. No edema. NEURO: Alert and oriented x3. PSYCH: Normal mood and affect. Course Vital Signs Vital signs: Vital Signs Temperature 97.6 F 02/07/22 21:19 Pulse Rate 88 02/07/22 21:19 Respiratory Rate 18 02/07/22 21:19 Pulse Oximetry 99 02/07/22 21:19 Oxygen Delivery Room Air 02/07/22 21:19 Te
[2022-02-07 23:01] VITALS: BP 120/84; PULSE 84; RESP 18; O2SAT 99
== END 2022-02-07 22:55 | disposition home or self-care (01) ==
PROVIDERS: Emergency Provider Emergency Medicine; PCP Family Medicine
DX: J18.9 Pneumonia, unspecified organism (principal); R07.0 Pain in throat
CPT/HCPCS: 71046; 99283

== ENCOUNTER 2022-06-11 20:23 | Emergency (ER) | payer OTHER, SELFPAY ==
[2022-06-11 20:48] VITALS: BP 112/64; PULSE 69; RESP 18; TEMP 36.5; O2SAT 98
[2022-06-11 22:25] LABS: Basophils Absolute Auto 0.1 K/mm3 (0.0-0.1); Basophils Percent Auto 0.6 % (0.2-1.2); Eosinophils Absolute Auto 0.4 K/mm3 (0-0.3); Eosinophils Percent Auto 4.9 % (0-4.4); Hematocrit 38.9 % (37.0-47.0); Hemoglobin 12.4 g/dL (12.0-15.0); Immature Granulocyte Absolute 0.01 K/mm3 (0.00-0.031); Immature Granulocyte Percent A 0.1 % (0-0.5); Lymphocytes Percent Auto 42.5 % (18.3-44.2); Mean Corpuscular HGB Conc 31.9 g/dl (32-36); Mean Corpuscular Hemoglobin 28.6 pg (26-34); Mean Corpuscular Volume 89.6 fl (80-100); Mean Platelet Volume 9.7 fl (7.4-10.4); Monocytes Absolute Auto 0.7 K/mm3 (0.1-0.6); Neutrophils Absolute Auto 3.6 K/mm3 (1.3-6.7); Neutrophils Percent Auto 43.9 % (45.5-73.1); Platelet Count Result 223 k/mm3 (150-375); Red Blood Count 4.34 M/mm3 (4.2-5.4); Red Cell Distribution Width 12.9 % (11.5-14.5); White Blood Count 8.2 K/mm3 (4.5-10.0)
[2022-06-11 22:28] LABS: Appearance Urine Clear (Clear); Bilirubin Urine Negative (Negative); Blood Urine Negative (Negative); Color Urine Yellow (Yellow); Glucose Urine UA Negative (Negative); Ketones Urine Trace mg/dL (Negative); Leukocyte Esterase Ur Negative LEU/UL (Negative); Nitrate Urine Negative (Negative); Protein Urine Negative (Negative); Specific Grav Ur 1.029 (1.001-1.035); Urobilinogen Urine 0.2 mg/dL (<2.0); pH Urine 5.5 (5.0-9.0)
[2022-06-11 22:30] LABS: Add Urine Microscopic? NO
[2022-06-11 22:39] LABS: Alanine Aminotransferase 22 U/L (6-35); Albumin Level 4.1 g/dL (3.5-5.1); Alkaline Phosphatase 102 U/L (38-126); Anion Gap 4 mmol/L (8-16); Aspartate Amino Transferase 23 U/L (14-36); Bilirubin,Total 0.3 mg/dL (0.2-1.3); Blood Urea Nitrogen 20 mg/dL (7-17); Calcium 8.9 mg/dL (8.4-10.2); Carbon Dioxide 28 mmol/L (22-30); Chloride 106 mmol/L (98-107); Estimated CRCL calculation 76 ml/min; Estimated Glomerular Filt Rate > 60; Glucose 96 mg/dL (65-110); Lipase 76 U/L (23-300); Potassium 3.8 mmol/L (3.4-5.0); Sodium 138 mmol/L (137-145)
[2022-06-11 23:03] VITALS: BP 122/74; PULSE 69; RESP 18; O2SAT 100
--- NOTE | 2022-06-12 01:07 | PC.NURSE ---
patient states she is leaving. ambulatory with steady gait. alert and oriented x4. states she will follow up with primary
== END 2022-06-12 01:25 | disposition left against medical advice (07) ==
PROVIDERS: Emergency Provider General Practice; PCP Family Medicine
DX: R10.31 Right lower quadrant pain (principal)
CPT/HCPCS: 36415; 80053; 81003; 83690; 85025; 99199

== ENCOUNTER 2023-02-05 08:29 | Outpatient (CLI) | payer OTHER, SELFPAY ==
[2023-02-05 09:12] LABS: Basophils Percent Auto 0.5 % (0.2-1.2); Eosinophils Absolute Auto 0.2 K/mm3 (0-0.3); Eosinophils Percent Auto 3.9 % (0-4.4); Hematocrit 39.7 % (37.0-47.0); Hemoglobin 12.5 g/dL (12.0-15.0); Immature Granulocyte Absolute 0.01 K/mm3 (0.00-0.031); Immature Granulocyte Percent A 0.2 % (0-0.5); Lymphocytes Absolute Auto 1.95 K/mm3 (0.9-3.2); Lymphocytes Percent Auto 34.5 % (18.3-44.2); Mean Corpuscular HGB Conc 31.5 g/dl (32-36); Mean Corpuscular Volume 92.1 fl (80-100); Mean Platelet Volume 10.2 fl (7.4-10.4); Monocytes Absolute Auto 0.4 K/mm3 (0.1-0.6); Monocytes Percent Auto 7.8 % (2.6-8.5); Neutrophils Percent Auto 53.1 % (45.5-73.1); Platelet Count Result 202 k/mm3 (150-375); Red Blood Count 4.31 M/mm3 (4.2-5.4); Red Cell Distribution Width 12.5 % (11.5-14.5); White Blood Count 5.7 K/mm3 (4.5-10.0)
[2023-02-05 09:14] LABS: Alanine Aminotransferase 17 U/L (6-35); Albumin Level 4.1 g/dL (3.5-5.1); Alkaline Phosphatase 82 U/L (38-126); Anion Gap 3 mmol/L (8-16); Aspartate Amino Transferase 23 U/L (14-36); Bilirubin,Total 0.5 mg/dL (0.2-1.3); Blood Urea Nitrogen 18 mg/dL (7-17); Calcium 9.3 mg/dL (8.4-10.2); Carbon Dioxide 31 mmol/L (22-30); Chloride 105 mmol/L (98-107); Cholesterol 169 mg/dL (0-200); Estimated Glomerular Filt Rate > 60; Glucose 95 mg/dL (65-110); HDL Direct 57 mg/dL; Potassium 4.5 mmol/L (3.4-5.0); Sodium 139 mmol/L (137-145); Triglycerides 73 mg/dL (<150)
[2023-02-05 09:24] LABS: LDL Cholesterol Direct 85 mg/dL
== END 2023-02-05 08:30 | disposition home or self-care (01) ==
LOC: ANHLAB 08:30
PROVIDERS: PCP Family Medicine; Visit Provider Physician Assistant Medical
DX: E78.5 Hyperlipidemia, unspecified (principal); Z13.220 Encounter for screening for lipoid disorders; Z13.1 Encounter for screening for diabetes mellitus; R42 Dizziness and giddiness
CPT/HCPCS: 36415; 80053; 80061; 85025

== ENCOUNTER 2023-12-19 07:22 | Outpatient (CLI) | payer OTHER, SELFPAY ==
[2023-12-19 08:25] LABS: Alanine Aminotransferase 15 U/L (6-35); Alkaline Phosphatase 95 U/L (38-126); Anion Gap 7 mmol/L (4-12); Aspartate Amino Transferase 23 U/L (14-36); Bilirubin,Total 0.4 mg/dL (0.2-1.3); Blood Urea Nitrogen 26 mg/dL (7-17); Calcium 9.4 mg/dL (8.4-10.2); Carbon Dioxide 31 mmol/L (22-30); Chloride 99 mmol/L (98-107); Cholesterol 215 mg/dL (0-200); Estimated Glomerular Filt Rate > 60; Glucose 92 mg/dL (65-110); HDL Direct 65 mg/dL; Potassium 4.3 mmol/L (3.4-5.0); Sodium 137 mmol/L (137-145); Triglycerides 69 mg/dL (<150)
[2023-12-19 08:33] LABS: Basophils Absolute Auto 0.1 K/mm3 (0.0-0.1); Basophils Percent Auto 0.8 % (0.2-1.2); Eosinophils Absolute Auto 0.3 K/mm3 (0-0.3); Eosinophils Percent Auto 4.4 % (0-4.4); Hematocrit 40.1 % (37.0-47.0); Hemoglobin 12.7 g/dL (12.0-15.0); Immature Granulocyte Absolute 0.02 K/mm3 (0.00-0.031); Immature Granulocyte Percent A 0.3 % (0-0.5); Lymphocytes Absolute Auto 2.03 K/mm3 (0.9-3.2); Lymphocytes Percent Auto 34.2 % (18.3-44.2); Mean Corpuscular HGB Conc 31.7 g/dl (32-36); Mean Corpuscular Hemoglobin 28.5 pg (26-34); Mean Corpuscular Volume 90.1 fl (80-100); Mean Platelet Volume 10.4 fl (7.4-10.4); Monocytes Absolute Auto 0.5 K/mm3 (0.1-0.6); Monocytes Percent Auto 7.7 % (2.6-8.5); Neutrophils Absolute Auto 3.1 K/mm3 (1.3-6.7); Neutrophils Percent Auto 52.6 % (45.5-73.1); Platelet Count Result 206 k/mm3 (150-375); Red Blood Count 4.45 M/mm3 (4.2-5.4); Red Cell Distribution Width 12.5 % (11.5-14.5); White Blood Count 5.9 K/mm3 (4.5-10.0)
[2023-12-19 08:36] LABS: LDL Cholesterol Direct 121 mg/dL
== END 2023-12-19 07:23 | disposition home or self-care (01) ==
LOC: ANHLAB 07:24
PROVIDERS: PCP Family Medicine; Visit Provider Physician Assistant Medical
DX: E78.5 Hyperlipidemia, unspecified (principal); F32.A Depression, unspecified; R53.83 Other fatigue; Z13.1 Encounter for screening for diabetes mellitus; Z13.220 Encounter for screening for lipoid disorders; E55.9 Vitamin D deficiency, unspecified
CPT/HCPCS: 36415; 80053; 80061; 82306; 82607; 84443; 85025

== ENCOUNTER 2024-01-15 09:08 | Outpatient (CLI) | payer OTHER, SELFPAY ==
--- NOTE | ~2024-01-15 | XR_ITS ---
EXAMINATION: XR lumbar spine 2-3V DATE: 01/15/2024 09:36 INDICATION: Low back pain. Fall. TECHNIQUE: 3 views of lumbar spine were obtained. COMPARISON: None. FINDINGS: There is 3 degrees dextrocurvature of lumbar spine. There is 7 mm anterolisthesis of L4 on L5. There is mild chronic anterior wedging of T11 vertebral body. There is mildly decreased disc heig ht at L4-L5 and severely decreased disc height at L5-S1. There is severe facet joint osteoarthritis i n lower lumbar spine. IMPRESSION: 1. Severe lower lumbar spondylosis. Reviewed, dictated and finalized at location A.
--- NOTE | ~2024-01-15 | XR_ITS ---
EXAMINATION: XR pelvis 1-2V DATE: 01/15/2024 09:36 INDICATION: Right hip pain. Fall. Low back pain. TECHNIQUE: An anteroposterior view of the pelvis was obtained. COMPARISON: Pelvis and right hip radiographs 03/25/2018 FINDINGS: Alignment is normal. There is severe lumbar spondylosis. There is mild osteoarthritis of th e hips. There are surgical clips in left inguinal region. IMPRESSION: 1. Mild osteoarthritis of the hips. Reviewed, dictated and finalized at location A.
== END 2024-01-15 09:09 | disposition home or self-care (01) ==
PROVIDERS: PCP Family Medicine; Visit Provider Chiropractor
DX: M47.816 Spondylosis without myelopathy or radiculopathy, lumbar region (principal); M16.0 Bilateral primary osteoarthritis of hip; M79.671 Pain in right foot; W19.XXXA Unspecified fall, initial encounter
CPT/HCPCS: 72100; 72170; 73630

== ENCOUNTER 2024-03-23 08:37 | Outpatient (CLI) | payer OTHER, SELFPAY ==
[2024-03-23 09:26] LABS: Alanine Aminotransferase 13 U/L (6-35); Aspartate Amino Transferase 26 U/L (14-36)
--- OUTSIDE RECORDS SUMMARY | 2024-03-29 16:44 | XMS_ITS | Patient Health Summary ---
Author Organization [facility] Address [address] [place] [address] Care Team Providers Care Accounts Receivable Representative Name Role Phone Beny Ramirez MD Primary Care Provider [phone] Leigh Ann Jones Unavailable [phone] Note from [facility],non-owned Affiliates and Associated Physician Practices is amultiple site organization consisting of ambulatory clinics and hospital sitesin [place], [place], [place] and [place]. This disclosure is being madepursuant to the Care Everywhere program and may not contain all information available regarding this patient. Last updated 17.[facility] Allergies No known active allergies Medications * Be aware that medications may not be up to date on this document. Alwaysverify current medications with the patient. 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 Seborrheic keratosis 04/12/2020 Social History Tobacco Use Types Packs/Day Years Used Date Smoking Tobacco: Never Smokeless Tobacco: Never Alcohol Use Standard Drinks/Week Comments Yes 0 (1 standard drink = 0.6 oz pur e alcohol) Very rarely Sex and Gender Information Value Date Recorded Sex Assigned at Not on file Gender Identity Not on file Sexual Orientation Not on file Care Teams Accounts Receivable Representative Relationship Specialty Start Date End Date Beny [place] [id number] PCP - General 03/14/20 Leigh Ann Jones PA [address] [place] [phone] PCP - Attributed-[employer] [place] 08/07/23
--- OUTSIDE RECORDS SUMMARY | 2024-03-29 16:44 | XMS_ITS | Referral Summary ---
Author Organization [facility] Address [address] [place] [address] Care Team Providers Care Commercial Real Estate Lender Name Role Phone Beny Ramirez MD Primary Care Provider [phone] Leigh Ann Jones Unavailable Source Comments [facility] [facility],non-owned Affiliates and Associated Physician Practices is amultiple site organization consisting of ambulatory clinics and hospital sitesin [place], [place], [place] and [place]. This disclosure is being madepursuant to the Care Everywhere program and may not contain all information available regarding this patient. Last updated 17.[facility] Allergies No known active allergies Medications * Be aware that medications may not be up to date on this document. Alwaysverify current medications with the patient. Medication Sig Dispensed Refills Start Date End Date Status Cyanocobalamin (VITAMIN B 12 PO) Take 1 tablet by mouth once daily Active ascorbic acid (VITAMIN C) 500 MG tablet Take 500 mg by mouth once daily Active Active Problems Problem Noted Date Diagnosed Date Dyspnea 04/12/2020 History of malignant melanoma of skin 04/12/2020 Assessment & Plan (04/12/2020 10:47 AM GLUE COOK): - L posterior thigh, s/p WLE by Dr. Diaz in early - NER - ABCDEs of melanoma reviewed - Benign, reassurance - Annual dental, OBGYN exam, regular age-appropriate cancer screenings - Sun protection, self-exam Multiple benign melanocytic nevi of upper extremity, [...] on file Sexual Orientation Not on file Plan of Treatment Not on file Care Teams Commercial Real Estate Lender Relationship Specialty Start Date End Date Beny Ramirez MD [address] [place] [phone] PCP - General 03/14/20 Leigh Ann Jones, PA [address] [place] [phone] PCP - Attributed-[employer] [place] 08/07/23
--- OUTSIDE RECORDS SUMMARY | 2024-03-29 16:44 | XMS_ITS | Encounter Summary ---
Author Organization [facility] Address [address] [place] [address] Care Team Providers Care Black Leather Buffer Name Role Phone Beny Ramirez MD Primary Care Provider [phone] Reason for Visit * Reason Comments Lesions FBSE; has new spots on face to check; hx of MM Encounter Details Date Type Department Care Team (Late st Contact Info) Description 04/12/2020 10:30 AM FERN PICKER Office Visit [facility] [address] [place] [phone] [place] [id number] [phone] Multiple benign melanocytic nevi of upper extremity, lower extremity, and trunk (Primary Dx); History of malignant melanoma of skin; Solar lentiginosis; Seborrheic keratosis Social History Tobacco Use Types Packs/Day Years Used Date Smoking Tobacco: Never Smokeless Tobacco: Never Alcohol Use Standard Drinks/Week Comments Yes 0 (1 standard drink = 0.6 oz pur e alcohol) Very rarely Sex and Gender Information Value Date Recorded Sex Assigned at Not on file Gender Identity Not on file Sexual Orientation Not on file documented as of this encounter Patient Instructions * Patient Instructions* Ailyn Tony MD - 04/12/2020 10:51 AM FERN PICKER It was a pleasure seeing you in the office today. Please follow up in 1 year PICKER documented in this encounter Progress Notes * Brenden Hester MD - 04/12/2020 10:59 AM CST Patient seen and examined with Resident. Please see note for further details. I was present for thekey portions of any procedures performed. I confirm history, exam, assessment and plan with the following exceptions/additions: CC: eval lesion HPI: Hx melanoma Has hx brown spots, mario on back. Nevi, lentigines. Most present for years. None seem to be changing or painful. No active trt for brown spots. ROS: No recent relevant illnesses/fevers or other skin complaints except noted otherwise. Relevant past medical history, social history and family history were reviewed, no changes or remarkable points unless otherwise noted. PE: -as above Gen: Alert, oriented, NAD, affect appropriate, pleasant Skin: Exam of the face, eyelids, scalp, lips, neck, bilat upper extr including nails and digits, chest, back, abd, bilat lower extr examined and unremarkable unless otherwise noted below: -well-healed scars in areas of prior skin ca as described above -jacobsen to brown well defined macules on shoulders -brown macules and papules on trunk and extr, but none with markedly different appearance from the others unless otherwise noted Assessment/Plan Hx melanoma as described above -no signs recurrence -sun protective behaviors Actinic lentigines/solar lentiginosis, multiple nevi -benign, educ, reassurance -marker of chronic sun damage and increased risk for skin malignancy, yearly FBSE reasonable -sun protective behaviors incl sunblock/sunscreen Brenden Hester MD PICKER * Ailyn Tony MD - 04/12/2020 10:33 AM CST Chief Complaint Patient presents with ??? Lesions FBSE; has new spots on face to check; hx of MM HPI: Mercedes Watson a 55 year old female presents for skin lesion evaluation. Concerns: Brown and red spots Location: Face, body Duration: Present for several decades, some growing slowly Symptoms: no bleeding or itching Previous treatments: none Personal history of skin cancer: History of melanoma in , L posterior thigh, s/p excision by Dr Diaz, not sure if lypmh node dissection Past medical history, social history and family history were reviewed. ROS: As per HPI above. PE: No acute distress. Mood clear/affect appropriate. Alert and oriented. Mucous membranes moist. Sclera anicteric. Full body skin exam was conducted to include the scalp, face, lips/teeth, lids/conjunctiva, ears, neck, chest, abdomen, back, groin/buttock, right and left hands and forearms, right and left leg and feet and was normal with the following exceptions: Well healed scar on L posterior thigh without pigment change or nodularity No inguinal LAD Multiple jacobsen to light brown macules on face, shoulders and arms Scattered over trunk and extremities are jacobsen to brown, waxy stuck on papules and plaques Scattered over trunk and extremities are numerous, 2-6 mm, evenly pigmented jacobsen to brown macules and papules A/P: Problem List Items Addressed This Visit History of malignant melanoma of skin - L posterior thigh, s/p WLE by Dr. Diaz in early - NER - ABCDEs of melanoma reviewed - Benign, reassurance - Annual dental, OBGYN exam, regular age-appropriate cancer screenings - Sun protection, self-exam Other Visit Diagnoses Multiple benign melanocytic nevi of upper extremity, lower extremity, and trunk - Primary Solar lentiginosis Seborrheic keratosis -Benign, reassurance RTC in 1 year FBSE Seen and d/w Dr Mir Tony MD Dermatology Resident PGY-IV PICKER documented in this encounter Plan of Treatment Not on file documented as of this encounter Visit Diagnoses Diagnosis Multiple benign melanocytic nevi of upper extremity, lower extremity, and trunk- Primary History of malignant melanoma of skin Personal history of malignant melanoma of skin Solar lentiginosis Other dyschromia Seborrheic keratosis * Assessment & Plan Note - Ailyn Tony MD - 04/12/2020 10:47 AM FERN PICKER Associated Problem(s): History of malignant melanoma of skin - L posterior thigh, s/p WLE by Dr. Diaz in early - NER - ABCDEs of melanoma reviewed - Benign, reassurance - Annual dental, OBGYN exam, regular age-appropriate cancer screenings - Sun protection, self-exam PICKER documented in this encounter Care Teams Black Leather Buffer Relationship Specialty Start Date End Date Beny Ramirez MD [address] [place] [address] PCP - General 03/14/20 documented as of this encounter
--- OUTSIDE RECORDS SUMMARY | 2024-03-29 16:44 | XMS_ITS | Clinical Summary ---
Author Organization [facility] [employer] Address [address] [place] [address] Care Team Providers Care Parimutuel Cashier Name Role Phone Beny Ramirez MD Primary Care Provider [phone] Leigh Ann Jones Unavailable [phone] Source Comments [facility] [employer],non-owned Affiliates and Associated Physician Practices is amultiple site organization consisting of ambulatory clinics and hospital sitesin [place], [place], [place] and [place]. This disclosure is being madepursuant to the Care Everywhere program and may not contain all information available regarding this patient. Last updated 17.[facility] [employer] Allergies No known active allergies Medications * [...] 04/12/2020 Assessment & Plan (04/12/2020 10:47 AM MOLD SHIFTER): - L posterior thigh, s/p WLE by Dr. 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 Seborrheic keratosis 04/12/2020 Family History Medical History Relation Name Comments None Known Brother None Known Father None Known Maternal Aunt None Known Maternal Grandfather None Known Maternal Grandmother None Known Maternal Uncle None Known Mother None Known Other None Known Paternal Aunt None Known Paternal Grandfather None Known Paternal Grandmother None Known Paternal Uncle None Known Sister Asthma Neg Hx CVA Neg Hx Cancer - Breast Neg Hx Cancer - Other Neg Hx Cancer - Skin, Melanoma Neg Hx Cancer - Skin, Non Melanoma Neg Hx Eczema Neg Hx Hemophilia Neg Hx Psoriasis Neg Hx Relation Name Status Comments Brother Father Maternal Aunt Maternal Grandfather Maternal Grandmother Maternal Uncle Mother Other Paternal Aunt Paternal Grandfather Paternal Grandmother Paternal Uncle Sister Social History Tobacco Use Types Packs/Day Years Used Date Smoking Tobacco: Never Smokeless Tobacco: Never Alcohol Use Standard Drinks/Week Comments Yes 0 (1 standard drink = 0.6 oz pur e alcohol) Very rarely Sex and Gender Information Value Date Recorded Sex Assigned at Not on file Gender Identity Not on file Sexual Orientation Not on file Plan of Treatment Health Maintenance Due Date Last Done Comments COLOGUARD (AGES 45-75) - COL ON CA SCREENING 1963 COLON MONITORING 1963 COLONOSCOPY - COLON CA SCREENING 1963 CT COLONOGRAPHY - COLON CA SCREENING 1963 Colorectal Cancer Screening 1963 FIT - COLON CA SCREENING 1963 FLEX SIG - COLON CA SCREENING 1963 LIPID TESTING 1963 MAMMOGRAM 1963 PAP SMEAR 1963 HIV SCREENING 1978 HEPATITIS C SCREENING 03/23/1981 DTAP/TDAP/TD VACCINES (1 - Tdap) 1982 ZOSTER VACCINE (1 of 2) 2013 DEPRESSION SCREENING 04/08/2023 COVID-19 VACCINE ( - 2023-2 5 season) 2023 INFLUENZA VACCINE (#1) 2023 Respiratory Syncytial Virus (RSV) Vaccine Pt: or over 60 yrs (1 - 1-dose 75+ series) 2038 HEPATITIS B VACCINE Aged Out No longe r eligible based on patient's age to complete this topic HIB VACCINE Aged Out No longer eligi ble based on patient's age to complete this topic HPV VACCINE Aged Out No longer eligi ble based on patient's age to complete this topic MENINGOCOCCAL VACCINE Aged Out No rasta nohemi eligible based on patient's age to complete this topic PNEUMOCOCCAL VACCINE Aged Out No long er eligible based on patient's age to complete this topic Care Teams Parimutuel Cashier Relationship Specialty Start Date End Date Beny Ramirez MD [address] [place] [address] PCP - General 03/14/20 Leigh Ann Jones, PA [address] [place] [place] [address] PCP - Attributed-[employer] [place] 08/07/23
== END 2024-03-23 08:38 | disposition home or self-care (01) ==
LOC: ANHLAB 08:38
PROVIDERS: PCP Family Medicine; Visit Provider Podiatrist Foot & Ankle Surgery
DX: B35.1 Tinea unguium (principal)
CPT/HCPCS: 36415; 84450; 84460